=== PATIENT | female | born 1955 | race Caucasian/White ===

== ENCOUNTER 2017-08-19 17:47 | Inpatient (IN) | payer BC ==
[2017-08-19] MEDS ORDERED: HYDROCODONE/APAP (5/325) TAB PO (19:30)
[2017-08-19] MEDS ORDERED: ONDANSETRON 4 MG INJ IV (19:30)
[2017-08-19] MEDS ORDERED: NACL 0.9% 3 ML SYG IV ×2 (19:30)
[2017-08-19] MEDS ORDERED: ZOLPIDEM 5 MG TAB PO (19:30)
[2017-08-19] MEDS ORDERED: ACETAMINOPHEN 325 MG TAB PO (19:30)
[2017-08-19 19:54] LABS: CREATINE KINASE 66 IU/L (23-200)
[2017-08-19 20:07] LABS: CK INDEX 2.1; CK-MB 1.36 ng/ml (0.0-2.4)
[2017-08-19] MEDS: OXYCODONE/ACETAMINOPHEN (10/325) TAB PO (20:14)
[2017-08-19 20:27] LABS: TROPONIN-I < 0.012 ng/ml (0.00-0.12)
[2017-08-19] MEDS: APIXABAN 5 MG TABLET PO (20:57)
[2017-08-19] MEDS ORDERED: PRAMIPEXOLE 0.25 MG TAB PO ×2 (21:30→22:00)
[2017-08-20 01:42] LABS: CREATINE KINASE 68 IU/L (23-200)
[2017-08-20 01:56] LABS: CK INDEX 2.1; CK-MB 1.46 ng/ml (0.0-2.4); TROPONIN-I 0.012 ng/ml (0.00-0.12)
[2017-08-20] MEDS: OXYCODONE/ACETAMINOPHEN (10/325) TAB PO ×4 (04:08→18:07)
[2017-08-20] MEDS: PANTOPRAZOLE (EC) 40 MG TAB PO (05:04)
[2017-08-20 08:05] LABS: HEMOGLOBIN A1C 5.4 % (0-5.9)
[2017-08-20 08:25] LABS: ALANINE AMINOTRANSFERASE 28 IU/L (13-69); ALBUMIN 3.7 g/dl (3.3-4.9); ALBUMIN/GLOBULIN RATIO 1.23; ALKALINE PHOSPHATASE 84 IU/L (42-121); ANION GAP 13 (8-16); ASPARTATE AMINO TRANSFERASE 32 IU/L (15-46); BILIRUBIN,INDIRECT 0.1 mg/dl (0-1.1); BILIRUBIN,TOTAL 0.1 mg/dl (0.2-1.3); BLOOD UREA NITROGEN 20 mg/dl (7-20); CALCIUM 8.8 mg/dl (8.4-10.2); CARBON DIOXIDE 28 mmol/L (21-31); CHLORIDE 101 mmol/L (97-110); CHOL/HDL RATIO 2.2 RATIO; CHOLESTEROL 160 mg/dl (100-200); CREATININE 0.92 mg/dl (0.44-1.00); GLUCOSE 103 mg/dl (70-220); HDL CHOLESTEROL 71 mg/dl (35-98); LDL CHOLESTEROL,CALCULATED 78 mg/dl; PHOSPHORUS 4.7 mg/dl (2.5-4.9); POTASSIUM 4.3 mmol/L (3.5-5.1); SODIUM 138 mmol/L (135-144); TOTAL PROTEIN 6.7 g/dl (6.1-8.1); TRIGLYCERIDES 57 mg/dl (0-149)
[2017-08-20] MEDS: APIXABAN 5 MG TABLET PO ×2 (09:00→21:09)
[2017-08-20] MEDS: FUROSEMIDE 40 MG INJ IV (09:00)
[2017-08-20] MEDS ORDERED: METOPROLOL 5 MG INJ IV (14:30)
[2017-08-20 14:31] LABS: ADD MAN DIFF? NO
[2017-08-20 14:32] LABS: WHITE BLOOD COUNT 7.9 10^3/ul (4.8-10.8)
[2017-08-20 14:32] LABS: BASOPHILS % 0.5 % (0.0-2.0); EOSINOPHILS # 0.3 10^3/ul (0.0-0.5); EOSINOPHILS % 3.9 % (0.0-7.0); HEMATOCRIT 38.3 % (37.0-47.0); HEMOGLOBIN 12.7 g/dl (12.0-16.0); LYMPHOCYTES # 1.6 10^3/ul (0.8-2.9); LYMPHOCYTES % 20.1 % (15.0-51.0); MEAN CORPUSCULAR HEMOGLOBIN 31.9 pg (29.0-33.0); MEAN CORPUSCULAR HGB CONC 33.2 g/dl (32.0-37.0); MEAN CORPUSCULAR VOLUME 96.2 fl (82.0-101.0); MEAN PLATELET VOLUME 10.2 fl (7.4-10.4); MONOCYTE # 0.7 10^3/ul (0.3-0.9); NEUTROPHIL # 5.2 10^3/ul (1.6-7.5); PLATELET COUNT 212 10^3/UL (140-415); RED BLOOD COUNT 3.98 10^6/ul (4.20-5.40); RED CELL DISTRIBUTION WIDTH 13.8 % (11.5-14.5)
[2017-08-20] MEDS: LEVOFLOXACIN 500MG/D5W (PMX) 100 ML IVPB ×2 (16:30→16:36)
[2017-08-20] MEDS: ALPRAZOLAM 0.5 MG TAB PO (23:18)
[2017-08-21] MEDS: PANTOPRAZOLE (EC) 40 MG TAB PO (05:07)
[2017-08-21] MEDS: OXYCODONE/ACETAMINOPHEN (10/325) TAB PO ×3 (07:36→21:58)
[2017-08-21 08:23] LABS: B-TYPE NATRIURETIC PEPTIDE 698 PG/ML (0-125)
[2017-08-21] MEDS: APIXABAN 5 MG TABLET PO ×2 (09:00→21:48)
[2017-08-21] MEDS: LACTOBACILLUS RHAMNOSUS CAP PO ×2 (09:01→21:48)
[2017-08-21] MEDS: FUROSEMIDE 40 MG INJ IV (09:04)
[2017-08-21] MEDS: ALPRAZOLAM 0.5 MG TAB PO (17:01)
[2017-08-22] MEDS: ALPRAZOLAM 0.5 MG TAB PO ×3 (01:23→18:40)
[2017-08-22] MEDS: PANTOPRAZOLE (EC) 40 MG TAB PO (05:59)
[2017-08-22] MEDS: OXYCODONE/ACETAMINOPHEN (10/325) TAB PO ×2 (07:05→21:28)
[2017-08-22] MEDS: LACTOBACILLUS RHAMNOSUS CAP PO ×2 (09:23→21:28)
[2017-08-22] MEDS: APIXABAN 5 MG TABLET PO ×2 (09:24→21:28)
[2017-08-22] MEDS: FUROSEMIDE 40 MG INJ IV (09:24)
[2017-08-22] MEDS: LEVOTHYROXINE 25 MCG TAB PO (13:43)
[2017-08-22] MEDS: MAGNESIUM HYDROXIDE 30ML CUP PO (14:46)
[2017-08-23] MEDS: LEVOTHYROXINE 25 MCG TAB PO (06:03)
[2017-08-23] MEDS: PANTOPRAZOLE (EC) 40 MG TAB PO (06:04)
[2017-08-23 07:49] LABS: FREE T4 (FREE THYROXINE) 0.97 ng/dl (0.78-2.44)
[2017-08-23] MEDS: FUROSEMIDE 40 MG INJ IV (09:02)
[2017-08-23] MEDS: APIXABAN 5 MG TABLET PO (09:02)
[2017-08-23] MEDS: LACTOBACILLUS RHAMNOSUS CAP PO (09:02)
[2017-08-23] MEDS: OXYCODONE/ACETAMINOPHEN (10/325) TAB PO (09:14)
== END 2017-08-23 10:49 | disposition left against medical advice (07) | DRG 291 ==
LOC: PP2 08-20 13:45 → TEL 17:47
DX: I11.0 Hypertensive heart disease with heart failure (principal); J18.9 Pneumonia, unspecified organism; J90 Pleural effusion, not elsewhere classified; I48.2 Chronic atrial fibrillation; I50.9 Heart failure, unspecified; G25.81 Restless legs syndrome; E03.9 Hypothyroidism, unspecified; R42 Dizziness and giddiness; G47.00 Insomnia, unspecified; F12.20 Cannabis dependence, uncomplicated; Z95.2 Presence of prosthetic heart valve; Z87.891 Personal history of nicotine dependence
CPT/HCPCS: 71045; 80053; 80061; 82550; 82553; 83036; 83735; 83880; 84100; 84439; 84443; 84484; 85025; 93005; 93306; 93970

== ENCOUNTER 2018-08-29 11:34 | Inpatient (IN) | payer BC ==
[2018-08-29 18:36] LABS: ADD MAN DIFF? NO
[2018-08-29 18:42] LABS: WHITE BLOOD COUNT 8.9 10^3/ul (4.8-10.8)
[2018-08-29 18:42] LABS: BASOPHIL # 0.1 10^3/ul (0.0-0.1); BASOPHILS % 0.6 % (0.0-2.0); EOSINOPHILS # 0.2 10^3/ul (0.0-0.5); EOSINOPHILS % 2.6 % (0.0-7.0); HEMATOCRIT 37.6 % (37.0-47.0); LYMPHOCYTES # 1.2 10^3/ul (0.8-2.9); MEAN CORPUSCULAR HEMOGLOBIN 30.1 pg (29.0-33.0); MEAN CORPUSCULAR HGB CONC 31.9 g/dl (32.0-37.0); MEAN CORPUSCULAR VOLUME 94.2 fl (82.0-101.0); MEAN PLATELET VOLUME 9.9 fl (7.4-10.4); MONOCYTE # 0.8 10^3/ul (0.3-0.9); MONOCYTES % 8.6 % (0.0-11.0); NEUTROPHIL # 6.6 10^3/ul (1.6-7.5); NEUTROPHILS % 74.7 % (39.0-77.0); PLATELET COUNT 206 10^3/UL (140-415); RED BLOOD COUNT 3.99 10^6/ul (4.20-5.40); RED CELL DISTRIBUTION WIDTH 14.8 % (11.5-14.5)
[2018-08-29] MEDS: PIPER-TAZO 3.375 GM IV (PMX) 100 ML IVPB (18:43)
[2018-08-29 18:46] LABS: ADD UMIC YES; UR ASCORBIC ACID 40 mg/dL (NEGATIVE); UR BACTERIA FEW /HPF (NONE SEEN); UR BILIRUBIN (Dip) NEGATIVE (NEGATIVE); UR BLOOD (Dip) NEGATIVE (NEGATIVE); UR CLARITY SLIGHTLY CLOUDY (CLEAR); UR COLOR YELLOW (YELLOW); UR GLUCOSE (Dip) NEGATIVE (NEGATIVE); UR KETONES (Dip) TRACE mg/dL (NEGATIVE); UR LEUKOCYTE ESTERASE (Dip) TRACE Leu/ul (NEGATIVE); UR NITRITE (Dip) NEGATIVE (NEGATIVE); UR RBC 2 /HPF (0-5); UR SPECIFIC GRAVITY (Dip) 1.029 (1.003-1.030); UR TOTAL PROTEIN (Dip) NEGATIVE (NEGATIVE); UR UROBILINOGEN (Dip) 1+ mg/dL (NEGATIVE); UR WBC 1 /HPF (0-5)
[2018-08-29 18:58] LABS: ALANINE AMINOTRANSFERASE 34 IU/L (13-69); ALBUMIN 3.6 g/dl (3.3-4.9); ALKALINE PHOSPHATASE 110 IU/L (42-121); ANION GAP 6 (5-13); ASPARTATE AMINO TRANSFERASE 41 IU/L (15-46); BILIRUBIN,INDIRECT 0.2 mg/dl (0-1.1); BILIRUBIN,TOTAL 0.2 mg/dl (0.2-1.3); BLOOD UREA NITROGEN 21 mg/dl (7-20); CALCIUM 8.9 mg/dl (8.4-10.2); CARBON DIOXIDE 28 mmol/L (21-31); CHLORIDE 107 mmol/L (97-110); CREATININE 0.89 mg/dl (0.44-1.00); Estimated GFR > 60 mL/min (>60); GLUCOSE 93 mg/dl (70-220); POTASSIUM 4.4 mmol/L (3.5-5.1); SODIUM 141 mmol/L (135-144); TOTAL PROTEIN 6.6 g/dl (6.1-8.1)
[2018-08-29 19:07] LABS: B-TYPE NATRIURETIC PEPTIDE 1330 PG/ML (0-125)
[2018-08-29 19:09] LABS: TROPONIN-I < 0.012 ng/ml (0.000-0.120)
[2018-08-29] MEDS: IPRATROPIUM (NEB) 0.5 MG/2.5 ML AMP INH (19:09)
[2018-08-29] MEDS: ALBUTEROL 0.083% (NEB) 2.5 MG/3 ML AMP INH (19:09)
[2018-08-29 19:12] LABS: INR 1.13; PROTIME 14.6 Sec (11.9-14.9); PT RATIO 1.1
[2018-08-29 19:13] LABS: PARTIAL THROMBOPLASTIN TIME 28.4 Sec (23.0-35.0)
[2018-08-29] MEDS: VANCOMYCIN 1 GM (PMX) 250 ML IVPB (19:48)
[2018-08-29] MEDS: IOHEXOL 100 ML (20:21)
[2018-08-29] MEDS: IOHEXOL 350MG/ML 50 ML BTL (20:21)
[2018-08-29] MEDS: SOD CHLORIDE 0.9% 100 ML (20:22)
[2018-08-29] MEDS: PRAMIPEXOLE 0.25 MG TAB PO (21:56)
[2018-08-29] MEDS: HYDROCODONE/APAP (10/325) TAB PO (22:16)
[2018-08-29] MEDS ORDERED: BISACODYL (EC) 5 MG TAB PO (23:00)
[2018-08-29] MEDS ORDERED: ACETAMINOPHEN 325 MG TAB PO (23:00)
[2018-08-29] MEDS ORDERED: ACETAMINOPHEN 650 MG SUPP PR (23:00)
[2018-08-29] MEDS ORDERED: DOCUSATE SODIUM 100 MG CAP PO (23:00)
[2018-08-29] MEDS ORDERED: MAGNESIUM HYDROXIDE 30ML CUP PO (23:00)
[2018-08-29] MEDS ORDERED: NACL 0.9% 3 ML SYG IV (23:00)
[2018-08-30 01:15] LABS: CREATINE KINASE 158 IU/L (23-200)
[2018-08-30 01:27] LABS: CK INDEX 2.5; CK-MB 3.92 ng/ml (0.0-2.4); TROPONIN-I < 0.012 ng/ml (0.000-0.120)
[2018-08-30 04:34] LABS: ADD MAN DIFF? NO
[2018-08-30 04:35] LABS: WHITE BLOOD COUNT 6.7 10^3/ul (4.8-10.8)
[2018-08-30 04:35] LABS: BASOPHILS % 0.4 % (0.0-2.0); EOSINOPHILS # 0.2 10^3/ul (0.0-0.5); EOSINOPHILS % 2.5 % (0.0-7.0); HEMATOCRIT 35.7 % (37.0-47.0); HEMOGLOBIN 11.5 g/dl (12.0-16.0); LYMPHOCYTES # 1.3 10^3/ul (0.8-2.9); LYMPHOCYTES % 18.6 % (15.0-51.0); MEAN CORPUSCULAR HEMOGLOBIN 30.2 pg (29.0-33.0); MEAN CORPUSCULAR HGB CONC 32.2 g/dl (32.0-37.0); MEAN CORPUSCULAR VOLUME 93.7 fl (82.0-101.0); MEAN PLATELET VOLUME 9.6 fl (7.4-10.4); MONOCYTE # 0.6 10^3/ul (0.3-0.9); MONOCYTES % 9.2 % (0.0-11.0); NEUTROPHIL # 4.6 10^3/ul (1.6-7.5); NEUTROPHILS % 68.9 % (39.0-77.0); PLATELET COUNT 183 10^3/UL (140-415); RED BLOOD COUNT 3.81 10^6/ul (4.20-5.40); RED CELL DISTRIBUTION WIDTH 14.8 % (11.5-14.5)
[2018-08-30] MEDS: HYDROCODONE/APAP (5/325) TAB PO ×3 (04:55→21:02)
[2018-08-30 04:57] LABS: CREATINE KINASE 145 IU/L (23-200)
[2018-08-30 04:59] LABS: ALANINE AMINOTRANSFERASE 34 IU/L (13-69); ALBUMIN 3.2 g/dl (3.3-4.9); ALBUMIN/GLOBULIN RATIO 1.06; ALKALINE PHOSPHATASE 101 IU/L (42-121); ANION GAP 4 (5-13); ASPARTATE AMINO TRANSFERASE 35 IU/L (15-46); BILIRUBIN,INDIRECT 0.4 mg/dl (0-1.1); BILIRUBIN,TOTAL 0.4 mg/dl (0.2-1.3); BLOOD UREA NITROGEN 17 mg/dl (7-20); CALCIUM 8.8 mg/dl (8.4-10.2); CARBON DIOXIDE 26 mmol/L (21-31); CHLORIDE 111 mmol/L (97-110); CREATININE 0.87 mg/dl (0.44-1.00); Estimated GFR > 60 mL/min (>60); GLUCOSE 95 mg/dl (70-220); POTASSIUM 4.6 mmol/L (3.5-5.1); SODIUM 141 mmol/L (135-144); TOTAL PROTEIN 6.2 g/dl (6.1-8.1)
[2018-08-30 05:09] LABS: CK INDEX 2.3; CK-MB 3.28 ng/ml (0.0-2.4); TROPONIN-I < 0.012 ng/ml (0.000-0.120)
[2018-08-30] MEDS ORDERED: PANTOPRAZOLE 40 MG INJ IV (06:00)
[2018-08-30] MEDS ORDERED: ENOXAPARIN 30 MG/0.3 ML SYG SC ×2 (09:00)
[2018-08-30] MEDS: PRAMIPEXOLE 0.25 MG TAB PO ×4 (09:00→20:29)
[2018-08-30] MEDS: APIXABAN 5 MG TABLET PO ×2 (10:00→20:28)
[2018-08-30] MEDS: FAMOTIDINE 20 MG INJ IV (10:00)
[2018-08-30] MEDS: FUROSEMIDE 40 MG INJ IV ×2 (10:00→17:27)
[2018-08-30] MEDS: CEFTRIAXONE 1 GM/50 ML (PMX) 50 ML IVPB (10:01)
[2018-08-30] MEDS ORDERED: FUROSEMIDE 40 MG INJ IV (11:00)
[2018-08-30] MEDS: ALPRAZOLAM 0.25 MG TAB PO (17:26)
[2018-08-30] MEDS: MAGNESIUM OXIDE 400 MG TAB PO (17:27)
[2018-08-30 17:29] LABS: MAGNESIUM 1.9 mg/dl (1.7-2.5)
[2018-08-30 17:29] LABS: POTASSIUM 4.4 mmol/L (3.5-5.1)
[2018-08-30] MEDS ORDERED: VANCOMYCIN IV PER PHARMACY XX (17:30)
[2018-08-30] MEDS: IPRATROPIUM (NEB) 0.5 MG/2.5 ML AMP HHN (20:08)
[2018-08-30] MEDS: ALBUTEROL 0.083% (NEB) 2.5 MG/3 ML AMP HHN (20:08)
[2018-08-30] MEDS: VANCOMYCIN HCL 1.25 GM in SOD CHLORIDE 0.9% 250 ML IVPB (20:29)
[2018-08-30] MEDS: FAMOTIDINE 20 MG TAB PO (20:29)
[2018-08-30] MEDS: ALPRAZOLAM 0.5 MG TAB PO (21:00)
[2018-08-31] MEDS: ALBUTEROL 0.083% (NEB) 2.5 MG/3 ML AMP HHN ×4 (02:10→20:16)
[2018-08-31] MEDS: IPRATROPIUM (NEB) 0.5 MG/2.5 ML AMP HHN ×4 (02:10→20:16)
[2018-08-31] MEDS: MAGNESIUM OXIDE 400 MG TAB PO ×2 (03:17→17:09)
[2018-08-31] MEDS: FUROSEMIDE 40 MG INJ IV ×2 (05:53→17:01)
[2018-08-31] MEDS: HYDROCODONE/APAP (5/325) TAB PO ×3 (06:02→21:48)
[2018-08-31 06:17] LABS: ADD MAN DIFF? NO
[2018-08-31 06:22] LABS: BASOPHIL # 0.1 10^3/ul (0.0-0.1); BASOPHILS % 0.7 % (0.0-2.0); EOSINOPHILS # 0.3 10^3/ul (0.0-0.5); EOSINOPHILS % 3.7 % (0.0-7.0); HEMATOCRIT 35.8 % (37.0-47.0); HEMOGLOBIN 11.7 g/dl (12.0-16.0); LYMPHOCYTES # 1.1 10^3/ul (0.8-2.9); LYMPHOCYTES % 14.5 % (15.0-51.0); MEAN CORPUSCULAR HEMOGLOBIN 30.2 pg (29.0-33.0); MEAN CORPUSCULAR HGB CONC 32.7 g/dl (32.0-37.0); MEAN CORPUSCULAR VOLUME 92.3 fl (82.0-101.0); MEAN PLATELET VOLUME 9.7 fl (7.4-10.4); MONOCYTE # 0.6 10^3/ul (0.3-0.9); MONOCYTES % 7.8 % (0.0-11.0); NEUTROPHIL # 5.3 10^3/ul (1.6-7.5); NEUTROPHILS % 72.9 % (39.0-77.0); PLATELET COUNT 209 10^3/UL (140-415); RED BLOOD COUNT 3.88 10^6/ul (4.20-5.40); RED CELL DISTRIBUTION WIDTH 14.7 % (11.5-14.5)
[2018-08-31 06:22] LABS: WHITE BLOOD COUNT 7.3 10^3/ul (4.8-10.8)
[2018-08-31 06:32] LABS: HEMOGLOBIN A1C 5.7 % (0-5.9)
[2018-08-31 07:06] LABS: ANION GAP 7 (5-13); BLOOD UREA NITROGEN 21 mg/dl (7-20); CALCIUM 8.7 mg/dl (8.4-10.2); CARBON DIOXIDE 28 mmol/L (21-31); CHLORIDE 105 mmol/L (97-110); Estimated GFR 56 mL/min (>60); GLUCOSE 141 mg/dl (70-220); POTASSIUM 3.9 mmol/L (3.5-5.1); SODIUM 140 mmol/L (135-144)
[2018-08-31] MEDS: FAMOTIDINE 20 MG TAB PO ×2 (09:27→21:48)
[2018-08-31] MEDS: APIXABAN 5 MG TABLET PO ×2 (09:27→21:48)
[2018-08-31] MEDS: VANCOMYCIN HCL 1.25 GM in SOD CHLORIDE 0.9% 250 ML IVPB ×2 (09:28→20:22)
[2018-08-31] MEDS: ALPRAZOLAM 0.5 MG TAB PO ×2 (09:33→21:48)
[2018-08-31] MEDS: CEFTRIAXONE 1 GM/50 ML (PMX) 50 ML IVPB (12:29)
[2018-08-31] MEDS: PRAMIPEXOLE 0.25 MG TAB PO (21:48)
[2018-09-01] MEDS: HYDROCODONE/APAP (5/325) TAB PO ×2 (01:10→18:16)
[2018-09-01] MEDS: IPRATROPIUM (NEB) 0.5 MG/2.5 ML AMP HHN ×4 (01:37→20:22)
[2018-09-01] MEDS: ALBUTEROL 0.083% (NEB) 2.5 MG/3 ML AMP HHN ×4 (01:37→20:22)
[2018-09-01 06:57] LABS: ADD MAN DIFF? NO
[2018-09-01 07:00] LABS: WHITE BLOOD COUNT 8.4 10^3/ul (4.8-10.8)
[2018-09-01 07:00] LABS: BASOPHIL # 0.1 10^3/ul (0.0-0.1); BASOPHILS % 0.7 % (0.0-2.0); EOSINOPHILS # 0.4 10^3/ul (0.0-0.5); EOSINOPHILS % 4.2 % (0.0-7.0); HEMATOCRIT 39.3 % (37.0-47.0); HEMOGLOBIN 12.7 g/dl (12.0-16.0); LYMPHOCYTES # 1.4 10^3/ul (0.8-2.9); LYMPHOCYTES % 17.1 % (15.0-51.0); MEAN CORPUSCULAR HGB CONC 32.3 g/dl (32.0-37.0); MEAN CORPUSCULAR VOLUME 92.7 fl (82.0-101.0); MEAN PLATELET VOLUME 9.4 fl (7.4-10.4); MONOCYTE # 0.6 10^3/ul (0.3-0.9); MONOCYTES % 7.5 % (0.0-11.0); NEUTROPHIL # 5.9 10^3/ul (1.6-7.5); PLATELET COUNT 238 10^3/UL (140-415); RED BLOOD COUNT 4.24 10^6/ul (4.20-5.40); RED CELL DISTRIBUTION WIDTH 14.5 % (11.5-14.5)
[2018-09-01 07:32] LABS: ANION GAP 7 (5-13); BLOOD UREA NITROGEN 20 mg/dl (7-20); CALCIUM 8.8 mg/dl (8.4-10.2); CARBON DIOXIDE 28 mmol/L (21-31); CHLORIDE 103 mmol/L (97-110); CREATININE 1.01 mg/dl (0.44-1.00); Estimated GFR 56 mL/min (>60); GLUCOSE 118 mg/dl (70-220); POTASSIUM 4.2 mmol/L (3.5-5.1); SODIUM 138 mmol/L (135-144)
[2018-09-01 07:33] LABS: PHOSPHORUS 4.1 mg/dl (2.5-4.9); VANCOMYCIN,TROUGH 14.6 ug/ml (10.0-20.0)
[2018-09-01] MEDS: VANCOMYCIN HCL 1.25 GM in SOD CHLORIDE 0.9% 250 ML IVPB ×2 (08:29→20:26)
[2018-09-01] MEDS: ALPRAZOLAM 0.5 MG TAB PO ×2 (08:31→20:27)
[2018-09-01] MEDS: APIXABAN 5 MG TABLET PO ×2 (08:31→20:27)
[2018-09-01] MEDS: FAMOTIDINE 20 MG TAB PO ×2 (08:31→20:27)
[2018-09-01] MEDS: CEFTRIAXONE 1 GM/50 ML (PMX) 50 ML IVPB (12:53)
[2018-09-01] MEDS: PRAMIPEXOLE 0.25 MG TAB PO (20:27)
[2018-09-02] MEDS: ALBUTEROL 0.083% (NEB) 2.5 MG/3 ML AMP HHN ×4 (01:09→21:04)
[2018-09-02] MEDS: IPRATROPIUM (NEB) 0.5 MG/2.5 ML AMP HHN ×4 (01:09→21:05)
[2018-09-02] MEDS: FAMOTIDINE 20 MG TAB PO ×2 (09:01→21:20)
[2018-09-02] MEDS: ALPRAZOLAM 0.5 MG TAB PO ×2 (09:01→21:20)
[2018-09-02] MEDS: APIXABAN 5 MG TABLET PO ×2 (09:01→21:21)
[2018-09-02] MEDS: VANCOMYCIN HCL 1.25 GM in SOD CHLORIDE 0.9% 250 ML IVPB ×2 (09:02→21:20)
[2018-09-02] MEDS: CEFTRIAXONE 1 GM/50 ML (PMX) 50 ML IVPB (09:04)
[2018-09-02] MEDS: HYDROCODONE/APAP (5/325) TAB PO ×3 (09:08→21:21)
[2018-09-02 09:54] LABS: ADD MAN DIFF? NO
[2018-09-02 09:57] LABS: BASOPHILS % 0.5 % (0.0-2.0); EOSINOPHILS # 0.3 10^3/ul (0.0-0.5); HEMATOCRIT 38.4 % (37.0-47.0); HEMOGLOBIN 12.3 g/dl (12.0-16.0); LYMPHOCYTES % 12.2 % (15.0-51.0); MEAN CORPUSCULAR HEMOGLOBIN 29.9 pg (29.0-33.0); MEAN CORPUSCULAR VOLUME 93.2 fl (82.0-101.0); MEAN PLATELET VOLUME 9.5 fl (7.4-10.4); MONOCYTE # 0.8 10^3/ul (0.3-0.9); MONOCYTES % 9.2 % (0.0-11.0); NEUTROPHIL # 6.1 10^3/ul (1.6-7.5); NEUTROPHILS % 73.5 % (39.0-77.0); PLATELET COUNT 238 10^3/UL (140-415); RED BLOOD COUNT 4.12 10^6/ul (4.20-5.40); RED CELL DISTRIBUTION WIDTH 14.5 % (11.5-14.5)
[2018-09-02 09:57] LABS: WHITE BLOOD COUNT 8.3 10^3/ul (4.8-10.8)
[2018-09-02 10:27] LABS: ALANINE AMINOTRANSFERASE 18 IU/L (13-69); ALBUMIN 3.8 g/dl (3.3-4.9); ALBUMIN/GLOBULIN RATIO 1.02; ALKALINE PHOSPHATASE 103 IU/L (42-121); ANION GAP 7 (5-13); ASPARTATE AMINO TRANSFERASE 32 IU/L (15-46); BILIRUBIN,INDIRECT 0.4 mg/dl (0-1.1); BILIRUBIN,TOTAL 0.4 mg/dl (0.2-1.3); BLOOD UREA NITROGEN 21 mg/dl (7-20); CALCIUM 9.1 mg/dl (8.4-10.2); CARBON DIOXIDE 27 mmol/L (21-31); CHLORIDE 106 mmol/L (97-110); CREATININE 0.87 mg/dl (0.44-1.00); Estimated GFR > 60 mL/min (>60); GLUCOSE 104 mg/dl (70-220); MAGNESIUM 2.1 mg/dl (1.7-2.5); POTASSIUM 4.5 mmol/L (3.5-5.1); SODIUM 140 mmol/L (135-144); TOTAL PROTEIN 7.5 g/dl (6.1-8.1)
[2018-09-02 10:34] LABS: B-TYPE NATRIURETIC PEPTIDE 531 PG/ML (0-125)
[2018-09-02] MEDS: COLLAGENASE 5 GM (UD JAR) TOP ×2 (16:03→21:20)
[2018-09-02] MEDS: FUROSEMIDE 40 MG INJ IV (16:03)
[2018-09-02] MEDS: PRAMIPEXOLE 0.25 MG TAB PO (21:20)
[2018-09-03] MEDS: ALBUTEROL 0.083% (NEB) 2.5 MG/3 ML AMP HHN ×4 (01:17→19:46)
[2018-09-03] MEDS: IPRATROPIUM (NEB) 0.5 MG/2.5 ML AMP HHN ×4 (01:17→19:47)
[2018-09-03] MEDS: ONDANSETRON 4 MG INJ IV (05:52)
[2018-09-03 07:47] LABS: ANION GAP 6 (5-13); BLOOD UREA NITROGEN 21 mg/dl (7-20); CARBON DIOXIDE 31 mmol/L (21-31); CHLORIDE 103 mmol/L (97-110); CREATININE 1.02 mg/dl (0.44-1.00); Estimated GFR 55 mL/min (>60); GLUCOSE 93 mg/dl (70-220); POTASSIUM 4.2 mmol/L (3.5-5.1); SODIUM 140 mmol/L (135-144)
[2018-09-03 07:48] LABS: PHOSPHORUS 4.5 mg/dl (2.5-4.9)
[2018-09-03 07:52] LABS: VANCOMYCIN,TROUGH 18.1 ug/ml (10.0-20.0)
[2018-09-03 08:06] LABS: MAGNESIUM 2.1 mg/dl (1.7-2.5)
[2018-09-03] MEDS: COLLAGENASE 5 GM (UD JAR) TOP ×2 (08:38→20:17)
[2018-09-03] MEDS: FAMOTIDINE 20 MG TAB PO ×2 (08:38→20:15)
[2018-09-03] MEDS: APIXABAN 5 MG TABLET PO ×2 (08:38→20:16)
[2018-09-03] MEDS: CEFTRIAXONE 1 GM/50 ML (PMX) 50 ML IVPB (08:38)
[2018-09-03] MEDS: ALPRAZOLAM 0.5 MG TAB PO ×2 (08:39→20:16)
[2018-09-03] MEDS: FUROSEMIDE 40 MG INJ IV ×2 (08:39→20:17)
[2018-09-03] MEDS: VANCOMYCIN HCL 1.25 GM in SOD CHLORIDE 0.9% 250 ML IVPB (10:50)
[2018-09-03] MEDS ORDERED: METOCLOPRAMIDE 10 MG INJ IV ×2 (12:00)
[2018-09-03] MEDS: HYDROCODONE/APAP (5/325) TAB PO (20:16)
[2018-09-03] MEDS: DOXYCYCLINE 100 MG TAB PO (20:17)
[2018-09-03] MEDS: PRAMIPEXOLE 0.25 MG TAB PO (20:17)
[2018-09-03] MEDS ORDERED: VANCOMYCIN 1 GM 250 ML IVPB (22:00)
[2018-09-04] MEDS: ZOLPIDEM 5 MG TAB PO (00:42)
[2018-09-04] MEDS: ALBUTEROL 0.083% (NEB) 2.5 MG/3 ML AMP HHN ×4 (02:04→20:07)
[2018-09-04] MEDS: IPRATROPIUM (NEB) 0.5 MG/2.5 ML AMP HHN ×4 (02:04→20:07)
[2018-09-04] MEDS: FAMOTIDINE 20 MG TAB PO ×2 (08:55→20:08)
[2018-09-04] MEDS: DOXYCYCLINE 100 MG TAB PO ×2 (08:55→20:08)
[2018-09-04] MEDS: FUROSEMIDE 40 MG INJ IV (08:56)
[2018-09-04] MEDS: APIXABAN 5 MG TABLET PO ×2 (08:56→20:08)
[2018-09-04] MEDS: COLLAGENASE 5 GM (UD JAR) TOP ×2 (08:57→20:08)
[2018-09-04 11:16] LABS: ANION GAP 9 (5-13); BLOOD UREA NITROGEN 22 mg/dl (7-20); CALCIUM 9.7 mg/dl (8.4-10.2); CARBON DIOXIDE 30 mmol/L (21-31); CHLORIDE 100 mmol/L (97-110); CREATININE 0.96 mg/dl (0.44-1.00); Estimated GFR 59 mL/min (>60); GLUCOSE 113 mg/dl (70-220); SODIUM 139 mmol/L (135-144)
[2018-09-04] MEDS: LORAZEPAM 2 MG INJ IV ×2 (12:19→22:53)
[2018-09-04] MEDS: BUMETANIDE 4 MG in DEXTROSE 5% 24 ML IV (14:55)
[2018-09-04] MEDS: PRAMIPEXOLE 0.25 MG TAB PO (20:08)
[2018-09-04] MEDS: ALPRAZOLAM 0.5 MG TAB PO (20:08)
[2018-09-04] MEDS: HYDROCODONE/APAP (5/325) TAB PO (20:08)
[2018-09-04] MEDS ORDERED: ZOLPIDEM 5 MG TAB PO (21:00)
[2018-09-05] MEDS: IPRATROPIUM (NEB) 0.5 MG/2.5 ML AMP HHN ×4 (01:47→20:30)
[2018-09-05] MEDS: ALBUTEROL 0.083% (NEB) 2.5 MG/3 ML AMP HHN ×4 (01:47→20:30)
[2018-09-05 06:47] LABS: ANION GAP 8 (5-13); BLOOD UREA NITROGEN 29 mg/dl (7-20); CARBON DIOXIDE 32 mmol/L (21-31); CHLORIDE 99 mmol/L (97-110); CREATININE 1.06 mg/dl (0.44-1.00); Estimated GFR 53 mL/min (>60); GLUCOSE 117 mg/dl (70-220); POTASSIUM 4.3 mmol/L (3.5-5.1); SODIUM 139 mmol/L (135-144)
[2018-09-05] MEDS: APIXABAN 5 MG TABLET PO ×2 (08:23→21:29)
[2018-09-05] MEDS: COLLAGENASE 5 GM (UD JAR) TOP ×2 (08:23→21:35)
[2018-09-05] MEDS: FAMOTIDINE 20 MG TAB PO ×2 (08:23→21:00)
[2018-09-05] MEDS: DOXYCYCLINE 100 MG TAB PO ×2 (08:23→21:29)
[2018-09-05] MEDS: LAMOTRIGINE 25 MG TAB PO (13:52)
[2018-09-05] MEDS: GABAPENTIN 300 MG CAP PO (13:53)
[2018-09-05] MEDS: BUMETANIDE IV (14:34)
[2018-09-05] MEDS: DEXTROSE 5% IV (14:34)
[2018-09-05 16:46] LABS: TSH RECEPTOR ANTIBODY <1 (< OR = 16)
[2018-09-05] MEDS: PRAMIPEXOLE 0.25 MG TAB PO ×2 (17:16→21:30)
[2018-09-05] MEDS ORDERED: POLYETHYLENE GLYCOL 17 GM PACKET PO (17:30)
[2018-09-05] MEDS: HYDROCODONE/APAP (5/325) TAB PO ×3 (18:13→19:24)
[2018-09-05] MEDS: LORAZEPAM 2 MG INJ IV (21:34)
[2018-09-05] MEDS: ALPRAZOLAM 0.5 MG TAB PO (21:34)
[2018-09-06] MEDS: IPRATROPIUM (NEB) 0.5 MG/2.5 ML AMP HHN ×3 (02:29→14:52)
[2018-09-06] MEDS: ALBUTEROL 0.083% (NEB) 2.5 MG/3 ML AMP HHN ×3 (02:30→14:52)
[2018-09-06] MEDS: HYDROCODONE/APAP (5/325) TAB PO (02:53)
[2018-09-06] MEDS: LORAZEPAM 2 MG INJ IV (04:51)
[2018-09-06 07:20] LABS: PHOSPHORUS 4.4 mg/dl (2.5-4.9)
[2018-09-06 07:20] LABS: MAGNESIUM 2.2 mg/dl (1.7-2.5)
[2018-09-06 07:22] LABS: ANION GAP 9 (5-13); BLOOD UREA NITROGEN 29 mg/dl (7-20); CALCIUM 10.1 mg/dl (8.4-10.2); CARBON DIOXIDE 31 mmol/L (21-31); CHLORIDE 100 mmol/L (97-110); CREATININE 1.04 mg/dl (0.44-1.00); Estimated GFR 54 mL/min (>60); GLUCOSE 109 mg/dl (70-220); POTASSIUM 4.3 mmol/L (3.5-5.1); SODIUM 140 mmol/L (135-144)
[2018-09-06] MEDS: DOXYCYCLINE 100 MG TAB PO (08:39)
[2018-09-06] MEDS: LAMOTRIGINE 25 MG TAB PO (08:39)
[2018-09-06] MEDS: APIXABAN 5 MG TABLET PO (08:39)
[2018-09-06] MEDS: FAMOTIDINE 20 MG TAB PO (08:39)
[2018-09-06] MEDS: COLLAGENASE 5 GM (UD JAR) TOP (08:40)
[2018-09-06] MEDS: BUMETANIDE 1 MG TAB PO (12:03)
== END 2018-09-06 15:20 | disposition home or self-care (01) | DRG 292 ==
LOC: TEL 09-04 14:50 → E/R 11:34 → TEL 08-30 16:17 → MS3 19:04
DX: I50.41 Acute combined systolic (congestive) and diastolic (congestive) heart failure (principal); J44.1 Chronic obstructive pulmonary disease with (acute) exacerbation; I42.9 Cardiomyopathy, unspecified; L03.115 Cellulitis of right lower limb; R45.851 Suicidal ideations; F31.63 Bipolar disorder, current episode mixed, severe, without psychotic features; E66.9 Obesity, unspecified; Z68.33 Body mass index [BMI] 33.0-33.9, adult; I89.0 Lymphedema, not elsewhere classified; I48.2 Chronic atrial fibrillation; D64.9 Anemia, unspecified; L85.8 Other specified epidermal thickening; Z87.891 Personal history of nicotine dependence; Z79.01 Long term (current) use of anticoagulants
CPT/HCPCS: 36415; 71045; 71275; 74176; 76604; 80048; 80053; 80202; 81001; 82550; 82553; 83036; 83605; 83735; 83880; 84100; 84132; 84235; 84443; 84484; 85025; 85610; 85730; 87040-91; 87070; 87081; 87086; 93005; 93306; 93970; 93971; 94640; 94664; 96374; 99285-25

== ENCOUNTER 2018-09-30 12:55 | Emergency (ER) | payer BC | END 2018-09-30 16:39 | disposition home or self-care (01) | LOC: FTE 16:39 | DX: S02.92XA Unspecified fracture of facial bones, initial encounter for closed fracture (principal); W01.0XXA Fall on same level from slipping, tripping and stumbling without subsequent striking against object, initial encounter; Y92.003 Bedroom of unspecified non-institutional (private) residence as the place of occurrence of the external cause; Z79.01 Long term (current) use of anticoagulants | CPT/HCPCS: 70486; 99284-25 ==

== ENCOUNTER 2018-10-10 20:42 | Emergency (ER) | payer SELFPAY, BC | END 2018-10-10 21:46 | disposition left against medical advice (07) | LOC: FTE 20:42 | DX: Z53.21 Procedure and treatment not carried out due to patient leaving prior to being seen by health care provider (principal) ==